=== PATIENT | female | born 1995 | race Caucasian/White ===

== ENCOUNTER → 2018-11-08 | Outpatient (CLI) | payer BC, OTHER | LOC: BHSO 14:00 | DX: F41.1 Generalized anxiety disorder (principal) ==

== ENCOUNTER → 2018-11-22 | Outpatient (CLI) | payer BC, OTHER | LOC: BHSO 15:00 | DX: F41.1 Generalized anxiety disorder (principal) ==

== ENCOUNTER → 2018-11-24 | Outpatient (CLI) | payer BC, OTHER | LOC: BHSO 13:00 | DX: F33.41 Major depressive disorder, recurrent, in partial remission (principal) ==

== ENCOUNTER → 2018-12-06 | Outpatient (CLI) | payer BC, OTHER | LOC: BHSO 11:00 | DX: F33.1 Major depressive disorder, recurrent, moderate (principal) ==

== ENCOUNTER → 2018-12-27 | Outpatient (CLI) | payer BC, OTHER | LOC: BHSO 15:00 | DX: F33.0 Major depressive disorder, recurrent, mild (principal) ==

== ENCOUNTER → 2019-01-22 | Outpatient (CLI) | payer BC, OTHER | LOC: BHSO 13:50 | DX: F33.1 Major depressive disorder, recurrent, moderate (principal) ==

== ENCOUNTER → 2019-04-24 | Outpatient (CLI) | payer BC, OTHER | LOC: BHSO 09:51 | DX: F33.1 Major depressive disorder, recurrent, moderate (principal) ==

== ENCOUNTER → 2019-05-01 | Outpatient (CLI) | payer BC, OTHER | LOC: BHSO 14:36 | DX: F33.42 Major depressive disorder, recurrent, in full remission (principal) | CPT/HCPCS: G0463 ==

== ENCOUNTER → 2019-05-08 | Outpatient (CLI) | payer BC, OTHER | LOC: BHSO 09:53 | DX: F33.1 Major depressive disorder, recurrent, moderate (principal) ==

== ENCOUNTER → 2019-05-22 | Outpatient (CLI) | payer BC, OTHER | LOC: BHSO 10:00 | DX: F33.1 Major depressive disorder, recurrent, moderate (principal) ==

== ENCOUNTER → 2019-06-05 | Outpatient (CLI) | payer BC, OTHER | LOC: BHSO 10:04 | DX: F33.1 Major depressive disorder, recurrent, moderate (principal) ==

== ENCOUNTER → 2019-06-19 | Outpatient (CLI) | payer BC, OTHER | LOC: BHSO 14:51 | DX: F33.0 Major depressive disorder, recurrent, mild (principal) ==

== ENCOUNTER → 2019-07-05 | Outpatient (CLI) | payer BC, OTHER | LOC: BHSO 09:58 | DX: F33.0 Major depressive disorder, recurrent, mild (principal) ==

== ENCOUNTER → 2019-07-24 | Outpatient (CLI) | payer BC, OTHER | LOC: BHSO 13:56 | DX: F33.41 Major depressive disorder, recurrent, in partial remission (principal) | CPT/HCPCS: G0463 ==

== ENCOUNTER → 2019-08-28 | Outpatient (CLI) | payer BC, OTHER | LOC: BHSO 14:37 | DX: F33.41 Major depressive disorder, recurrent, in partial remission (principal) | CPT/HCPCS: G0463 ==

== ENCOUNTER → 2019-09-17 | Outpatient (CLI) | payer BC, OTHER | LOC: BHSO 12:58 | DX: F33.1 Major depressive disorder, recurrent, moderate (principal) ==

== ENCOUNTER → 2019-09-26 | Outpatient (CLI) | payer BC, OTHER | LOC: BHSO 13:39 | DX: F41.1 Generalized anxiety disorder (principal) | CPT/HCPCS: G0463 ==

== ENCOUNTER → 2019-10-02 | Outpatient (CLI) | payer BC, OTHER | LOC: BHSO 14:53 | DX: F33.1 Major depressive disorder, recurrent, moderate (principal) ==